=== PATIENT | female | born 1985 | race Caucasian/White ===

== ENCOUNTER → 2020-07-02 | Outpatient (CLI) | payer OTHER | LOC: M WHC 10:38 | PROVIDERS: ATTEND Obstetrics & Gynecology | DX: Z36.89 Encounter for other specified antenatal screening (principal); Z3A.13 13 weeks gestation of pregnancy ==

== ENCOUNTER → 2020-08-05 | Outpatient (CLI) | payer OTHER ==
--- NOTE | 2020-08-05 11:20 | REP ---
INDICATION: ANATOMY COMPARISON: None. TECHNIQUE: Transabdominal obstetrical ultrasound with color Doppler evaluation. FINDINGS: Examination demonstrates a single live intrauterine in breech presentation. motion is identified by technologist. Placenta is noted fundal and grade 1 without evidence for placenta previa or abruption. Amniotic fluid volume is normal. Cervix measures 3.0 cm in length and appears closed.. Selected gestational age: 18 weeks 1 day with TIMUR 01/05/2021. Gestational age by current measurements 19 weeks 0 days with TIMUR 12/30/2020. FHR equals 161 beats per minute. Estimated weight 267 grams (91stpercentile). Anatomical assessment demonstrates normal structures including cranium, choroid plexus, cavum, cerebellum/posterior fossa, facial features, lungs, four-chamber heart/ventricular outflow tracts, diaphragm, stomach, cord insertion/three-vessel cord, kidneys/bladder, and extremities. Limited images of the spine due to positioning. IMPRESSION: Single live intrauterine in breech presentation demonstrating appropriate estimated weight. Limited evaluation of the spine. Remainder of the anatomical assessment is complete and normal. <Electronically signed by All Hobbs > 08/05/20 [id number]
== END ==
LOC: M WHC 09:47
PROVIDERS: ATTEND Obstetrics & Gynecology
DX: Z36.89 Encounter for other specified antenatal screening (principal); Z3A.13 13 weeks gestation of pregnancy

== ENCOUNTER → 2020-09-15 | Outpatient (CLI) | payer OTHER ==
--- NOTE | 2020-09-15 13:36 | REP ---
INDICATION: F/U ANATOMY SPINE, TIMUR 01/05/21. COMPARISON: Comparison study August 05, 2020.. TECHNIQUE: Transabdominal obstetric sonography. FINDINGS: Scanning through the gravid uterus demonstrates a viable single intrauterine gestation in transverse lie. motion is observed and heart rate is recorded at 161 beats per minute. A fundal placenta is seen, grade 1, without evidence of placenta previa. Closed cervical length is measured at 4.3 cm transabdominally. No extrauterine abnormality is observed. Amniotic fluid is subjectively normal. No anomaly is seen. The following anatomic structures are identified and felt to be sonographically unremarkable: cranium, choroid plexus, cavum, cerebellum and posterior fossa, face and profile, lungs, four-chamber heart with left and right ventricular outflow tract views, diaphragm, left-sided stomach, abdominal wall cord insertion, three-vessel umbilical cord, kidneys and bladder, and upper and lower extremities. spine is still less than optimally seen due to position. Biometry chart: BPD 6.3 cm, 25 weeks 4 days Head circumference 22.9 cm, 25 weeks 0 days Abdominal circumference 19.7 cm, 24 weeks 2 days Femur length 4.1 cm, 23 weeks 1 day Humeral length 4.0 cm, 24 weeks 2 days HC AC ratio normal 1.16 Cephalic index normal 0.77 Estimated weight 653 g, 1 lb 7 oz, 43rd percentile for 24 weeks 0 days IMPRESSION: Viable single intrauterine gestation at 24 weeks 3 days by today's composite sonographic criteria. TIMUR by today's sonography January 02, 2021.. No complication identified. Expected gestational age estimate based on known TIMUR 01/05/2021 is 24 weeks 0 days. spine is still less than optimally visualized. Transverse lie. <Electronically signed by Tl Garcia > 09/15/20 [id number]
== END ==
LOC: M WHC 10:56
PROVIDERS: ATTEND Advanced Practice Midwife
DX: O09.522 Supervision of elderly multigravida, second trimester (principal)

== ENCOUNTER → 2020-09-24 | Outpatient (CLI) | payer OTHER | LOC: M WHC 12:17 | PROVIDERS: ATTEND Obstetrics & Gynecology | DX: Z36.89 Encounter for other specified antenatal screening (principal); Z3A.25 25 weeks gestation of pregnancy ==

== ENCOUNTER → 2020-09-24 | Outpatient (CLI) | payer OTHER ==
[2020-09-24 15:25] LABS: HEMATOCRIT 35.3 % (36.0-47.0); HEMOGLOBIN 11.7 g/dl (12.0-15.5); MEAN CORPUSCULAR HEMOGLOBIN 32.8 pg (27.0-33.0); MEAN CORPUSCULAR HGB CONC 33.1 g/dl (32.0-36.5); MEAN CORPUSCULAR VOLUME 98.9 fl (80.0-96.0); PLATELET COUNT, AUTOMATED 250 10^3/uL (150-450); RED BLOOD COUNT 3.57 10^6/uL (4.00-5.40); WHITE BLOOD COUNT 8.4 10^3/uL (4.0-10.0)
== END ==
LOC: M PLALAB 12:26
PROVIDERS: ATTEND Advanced Practice Midwife
DX: O09.522 Supervision of elderly multigravida, second trimester (principal)

== ENCOUNTER → 2020-09-30 | Outpatient (CLI) | payer OTHER ==
--- NOTE | 2020-09-30 08:23 | REP ---
INDICATION: F/U ANATOMY. COMPARISON: 08/05/2020 and 09/15/2020. TECHNIQUE: Studies performed for follow up evaluation of the spine. The spine could not be optimally demonstrated on the prior examinations. The remainder of the anatomy previously was unremarkable. FINDINGS: The study today the spine is adequately demonstrated and is unremarkable. The remainder of the anatomy was adequately demonstrated on the prior studies and was unremarkable. There is a single intrauterine gestation in a breech presentation. heart rate is 163 beats per minute. The placenta is fundal with grade 1 maturity. There is no placenta previa. The umbilical cord inserts centrally onto the placenta. There is a three-vessel cord. Subjectively the amniotic fluid volume is normal. The composite ultrasound gestational age by today's study is 27 weeks 0 days with an TIMUR of 12/30/2020. Gestational age by the 1st ultrasound is 26 weeks 1 day with an TIMUR of 01/05/2021. Gestational age by LMP is 26 weeks 1 day with an TIMUR of 01/05/2021. Estimated weight is 984 g/2 lb, 2 oz. This is the 68th percentile for 26 weeks 1 day. Review of the growth graphs indicates adequate interval growth. IMPRESSION: The spine is adequately demonstrated and is unremarkable. There has been adequate interval growth. <Electronically signed by Irvin Be > 09/30/20 [id number]
== END ==
LOC: M WHC 06:53
PROVIDERS: ATTEND Advanced Practice Midwife
DX: Z36.89 Encounter for other specified antenatal screening (principal); Z3A.25 25 weeks gestation of pregnancy

== ENCOUNTER → 2020-10-06 | Outpatient (CLI) | payer OTHER | LOC: M LAB 09:16 | PROVIDERS: ATTEND Advanced Practice Midwife | DX: O99.810 Abnormal glucose complicating pregnancy (principal) ==

== ENCOUNTER 2020-12-02 20:53 | Inpatient (IN) | payer OTHER ==
[~2020-12-02] VITALS: Ht 152.4 cm; Wt 68.3 kg
[2020-12-02] VITALS (10 sets, daily range): BP systolic 117–135; BP diastolic 59–83
[2020-12-02] MEDS ORDERED: PREN1CHW PO (21:18)
[2020-12-02] MEDS ORDERED: PENICILLIN G POTASSIUM IV 5 MU in D5W MINI-BAG PLUS 100 ML IV STA (21:58)
[2020-12-02] MEDS ORDERED: LACTATED RINGER'S 1000 ML IV STA (21:58)
[2020-12-02] MEDS ORDERED: OXYTOCIN DRIP 30 UNITS in IV 1 EA IV PRN (22:00)
[2020-12-02] MEDS ORDERED: TRANEXAMIC ACID INJection 1,000 MG in NS 100 ML IV PRN (22:00)
[2020-12-02] MEDS ORDERED: LIDOCAINE 1% MDV 20ML VIAL INFIL PRN (22:00)
[2020-12-02] MEDS ORDERED: BETAMETHASONE SOLUSPAN 6MG/ML 5ML VIAL (J0702 PER 3MG) IM SCH (22:00)
[2020-12-02] MEDS ORDERED: CARBOPROST TROMETHAMINE 250 MCG/ML AMP IM PRN (22:00)
[2020-12-02] MEDS ORDERED: METHYLERGONOVINE MALEATE 0.2 MG/ML VIAL (J2210) IM PRN (22:00)
--- NOTE | 2020-12-02 22:10 | HPEPDOC ---
Obstetrical History & Physical General Date of Admission Dec 02, 2020 at 21:50 History of Present Illness Patient is a 35-year-old G1, P0 at 35 weeks and 1 day estimated gestational age who presents to labor and delivery for rule out rupture. The patient was laying on her couch when she felt a pop and a large gush of fluid, she has continued leaking of clear fluid since then. She is also started having contractions which are 5 to 7 minutes apart but increasing in intensity. She had some vaginal bleeding which has since resolved. She reports positive movement. Chief Complaint: Rupture of membranes Age: 35 : 1 Term: 0 Livin Care Care: Good Care Dating Final EDC: Jan 05, 2021 Antepartum Course Diagnos(e)s 1. GDM A1-well controlled with diet 2. 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 history Past Medical History Medical History GDM A1 Surgical History: Denies/None Family History Significant Family History: No pertinent family hx Social History Marital Status: Family situation: Spouse/partner home Psychosocial History: No pertinent psych hx * Smoker: non-smoker Alcohol: Denies Drugs: denies Abuse Violence Screening Have you been hit/kicked/slapp: No Have you been sexually assault: No Imunizations Tdap status: current Allergies Coded Allergies: Sulfa (Sulfonamide Antibiotics) (Verified Allergy, Intermediate, 12/02/20) balsam davis (Verified Allergy, Unknown, 12/02/20) Medications Scheduled Comb No.42/Folic Acid (Prena1 Chew Tablet) 1.4 Mg Tab.ch.bph, 1 TAB PO DAILY Physical Examination Physical Examination GENERAL: Alert and oriented times three. BREAST: . ABDOMEN: Gravid and non-tender to touch. FETUS: Vertex by bedside ultrasound HEART RATE: Regular rate and rhythm. LUNGS: Clear to auscultation (CTA). EXTREMITIES: No edema. No clonus. Vital Signs/I&O Vital Signs Date Time Temp Pulse Resp B/P (MAP) Pulse Ox O2 Delivery O2 Flow Rate FiO2 12/02/20 21:19 98.6 93 14 117/73 (88) Laboratory Data 24H LABS Laboratory Tests 2 12/02/20 21:56: Serology Scanned Report Hepatitis B Testing Pertinent Laboratoy Data Blood Type: O+ RBC Antibody Screen: Negative HIV: Negative Hepatitis B: Negative Hepatitis C: Negative Rapid Plasma Reagin: Nonreactive Rubella: Immune Chlamydia/Gonorrhea: Negative Group B Streptococcus: Unknown Glucose Tolerance Test: 133 Steroid Therapy Steroid Therapy: Yes Date #1: Dec 02, 2020 Reason late Vaginal Examination Dilation: 5 cm Effacement: 100% Station: 0 Presentation: Cephalic presentation Assessment Heart Rate (FHR): 150 Variability: Moderate Accelerations: Positive Decelerations: None Tocometer Contractions: Yes Frequency: every 3-7 min. Assessment/Plan Assessment Patient is a 35-year-old (G) 1 para (P) 0 at 35+ 1 weeks who presents to Labor and Delivery (L&D) with premature rupture of membranes. Plan Admit and orient. Uniform Cap Operator and consent. Diet: Clear liquid Group B Streptococcus (GBS) unknown and , will start penicillin GBS swab sent to lab Will give course of betamethasone, first dose now Labs and intravenous (IV) per unit protocol. Counseled on Pitocin and induction of labor (IOL). Lactated Ringers (LR): Bolus 1000 mL, then at 125 mL/hr. Anticipate normal spontaneous vaginal delivery. C-S as appropriate. CANDI BAEZA MD Dec 02, 2020 22:10
[2020-12-02] MEDS ORDERED: OXYTOCIN 30 UNITS IN 0.9% NaCl 500ML IV BAG (J2590) As Ordered ONE (22:50)
[2020-12-02 22:56] LABS: HEMATOCRIT 31.2 % (36.0-47.0); HEMOGLOBIN 10.7 g/dl (12.0-15.5); MEAN CORPUSCULAR HEMOGLOBIN 31.9 pg (27.0-33.0); MEAN CORPUSCULAR HGB CONC 34.3 g/dl (32.0-36.5); MEAN CORPUSCULAR VOLUME 93.1 fl (80.0-96.0); PLATELET COUNT, AUTOMATED 190 10^3/uL (150-450); RED BLOOD COUNT 3.35 10^6/uL (4.00-5.40); WHITE BLOOD COUNT 7.6 10^3/uL (4.0-10.0)
[2020-12-02] MEDS ORDERED: FENTANYL 2MCG/ML ROPIVACAINE 0.2% IN 0.9% NACL 100ML IVBAG As Ordered ONE (23:04)
[2020-12-02] MEDS ORDERED: diphenhydrAMINE 50MG/ML VIAL (J1200) IV PRN (23:41)
[2020-12-02] MEDS ORDERED: REFRIGERATOR IV KEYS XX PRN (23:41)
[2020-12-02] MEDS ORDERED: EPIDURAL/PCA KEYS XX PRN (23:41)
[2020-12-02] MEDS ORDERED: EPIDURAL COMMENT XX SCH (23:41)
[2020-12-02] MEDS ORDERED: ONDANSETRON 4MG/2ML VIAL IV PRN (23:41)
[2020-12-02] MEDS ORDERED: LACTATED RINGER'S 1000 ML IV PRN (23:41)
[2020-12-02] MEDS ORDERED: ePHEDrine SULFATE 25 MG/5 ML(5MG/ML) SYRINGE IV PRN (23:41)
[2020-12-02] MEDS ORDERED: NALOXONE INJ 0.4MG/1ML VIAL (J2310 PER 1MG) IV PRN (23:41)
[2020-12-02] MEDS ORDERED: FENTANYL/ROPIVACAINE/NACL BAG 100 ML EPIDURAL SCH (23:41)
[2020-12-02] MEDS: LR 1,000 ML IV SCH (23:48)
--- NOTE | 2020-12-02 23:57 | IPNPDOC ---
Obstetrical Progress Note Date of Service Dec 02, 2020 Subjective pt more comfortable with epidural, feeling intermittent rectal pressure Objective Vital Signs Date Time Temp Pulse Resp B/P (MAP) Pulse Ox O2 Delivery O2 Flow Rate FiO2 12/02/20 21:19 98.6 93 14 117/73 (88) Assessment Heart Rate (FHR): 130 Variability: Moderate Accelerations: Positive Decelerations: None Heart Rate Tracing: Category I Tocometer Contractions: Yes Frequency: regular Sterile Vaginal Examination Dilation: 8 cm Effacement (%): 100% Station: +1 Assessment and Plan Status: Reassuring Group B Streptococcus: Unknown Anticipate: Vaginal Delivery CANDI BAEZA MD Dec 02, 2020 23:57
[2020-12-03] VITALS (10 sets, daily range): BP systolic 102–128; BP diastolic 50–69
[2020-12-03] MEDS ORDERED: PENICILLIN G POTASSIUM IV 2.5 MU in IV 1 EA IV SCH (03:00)
[2020-12-03] MEDS ORDERED: MEASLES,MUMPS,RUBELLA VACCINE INJ (MMR-II) (90707) SC SCH (03:15)
[2020-12-03] MEDS ORDERED: DOCUSATE SODIUM 100MG CAPSULE PO PRN (03:15)
[2020-12-03] MEDS ORDERED: METHYLERGONOVINE MALEATE 0.2 MG TAB PO PRN (03:15)
[2020-12-03] MEDS ORDERED: RHOGAM 300 MCG (1500 IU) INJ (J2790) IM SCH (03:15)
[2020-12-03] MEDS ORDERED: ONDANSETRON 4MG/2ML VIAL IV PRN (03:15)
[2020-12-03] MEDS ORDERED: ACETAMINOPHEN 500 MG TAB PO PRN (03:15)
[2020-12-03] MEDS ORDERED: OXYTOCIN DRIP 30 UNITS in IV 1 EA IV SCH (03:15)
[2020-12-03] MEDS ORDERED: IBUPROFEN 600MG TAB PO PRN (03:15)
[2020-12-03] MEDS ORDERED: DIBUCAINE 1% OINTMENT 30GM TOP PRN (03:15)
--- NOTE | 2020-12-03 03:22 | DNPDOC ---
[facility] Delivery Note Delivery Note DATE OF DELIVERY: 12/03/2020 PREDELIVERY DIAGNOSIS: 35-2/7 weeks' gestation and labor. POST DELIVERY DIAGNOSIS: Delivered. PROCEDURE: Spontaneous vaginal delivery. DISPLAY DESIGNER: Dr. Candi Baeza ANESTHESIA: Epidural. ESTIMATED BLOOD LOSS: 200 mL. FINDINGS: 6 pound 9 ounce male infant, Score 8/8 DELIVERY SUMMARY: Patient is a 35-year-old 1 now para 1001 who was admitted to labor and delivery for premature rupture of membranes followed by contractions. Patient was found to be 5 cm dilated and 100% effaced on admission. She was given a single dose of betamethasone for lung maturity and started on penicillin for GBS unknown and . She quickly became more uncomfortable and was found to be 8 cm dilated and requested an epidural. The epidural was placed. The patient progressed to complete with head at the +2 station. The patient pushed well over several contractions and the infant was delivered without complication. After 30 second delay the cord was clamped and cut. Placenta was expressed with fundal massage. The pat ient had a second-degree perineal laceration which was repaired with 3-0 Vicryl suture in a running/locking fashion. A small periurethral tear was repaired with 3-0 Vicryl on an SH needle for hemostasis. Uterine tone was excellent and adequate hemostasis was noted. A rectal exam performed after delivery was unremarkable and no sutures were palpated. Sponge and sharp count correct. CANDI BAEZA MD Dec 03, 2020 03:22
[2020-12-03] MEDS: PRENATAL VITAMINS CHEWABLE TABLET PO SCH (09:00)
[2020-12-03] MEDS: LR 1,000 ML IV SCH ×2 (11:01→14:00)
[2020-12-04 06:00] VITALS: BP 102/57
[2020-12-04] MEDS: PRENATAL VITAMINS CHEWABLE TABLET PO SCH (07:52)
[2020-12-04 10:07] LABS: HEMATOCRIT 30.7 % (36.0-47.0); HEMOGLOBIN 9.8 g/dl (12.0-15.5); MEAN CORPUSCULAR HEMOGLOBIN 31.1 pg (27.0-33.0); MEAN CORPUSCULAR HGB CONC 31.9 g/dl (32.0-36.5); MEAN CORPUSCULAR VOLUME 97.5 fl (80.0-96.0); PLATELET COUNT, AUTOMATED 216 10^3/uL (150-450); RED BLOOD COUNT 3.15 10^6/uL (4.00-5.40); WHITE BLOOD COUNT 11.2 10^3/uL (4.0-10.0)
== END 2020-12-04 12:46 | disposition home or self-care (01) | DRG 560 ==
LOC: M LDO 20:53 → M LDI 21:50 → M OBS 12-03 05:27
PROVIDERS: ADMIT Obstetrics & Gynecology; ATTEND Obstetrics & Gynecology
PROC: 10E0XZZ Delivery of Products of Conception, External Approach (ICD-10-PCS; principal; 2020-12-03)
PROC: 0KQM0ZZ Repair Perineum Muscle, Open Approach (ICD-10-PCS; 2020-12-03)
DX: O42.013 Preterm premature rupture of membranes, onset of labor within 24 hours of rupture, third trimester (principal); O24.420 Gestational diabetes mellitus in childbirth, diet controlled; Z3A.35 35 weeks gestation of pregnancy; Z37.0 Single live birth; O70.1 Second degree perineal laceration during delivery

== ENCOUNTER → 2021-03-23 | Outpatient (CLI) | payer OTHER ==
[~2021-03-23] MED LIST: PREN1CHW PO
[2021-03-23 13:30] LABS: ALBUMIN 3.9 GM/DL (3.2-5.2); ALT/SGPT 18 U/L (12-78); BILIRUBIN,TOTAL 0.3 MG/DL (0.2-1.0); BLOOD UREA NITROGEN 11 MG/DL (7-18); CALCIUM LEVEL 8.9 MG/DL (8.5-10.1); CARBON DIOXIDE LEVEL 24 MEQ/L (21-32); CHLORIDE LEVEL 108 MEQ/L (98-107); CREATININE FOR GFR 0.88 MG/DL (0.55-1.30); GLOMERULAR FILTRATION RATE > 60.0 (>60); GLUCOSE, FASTING 89 MG/DL (70-100); POTASSIUM SERUM 4.6 MEQ/L (3.5-5.1); SODIUM LEVEL 138 MEQ/L (136-145); TOTAL PROTEIN 7.2 GM/DL (6.4-8.2)
[2021-03-23 13:48] LABS: HEMOGLOBIN A1c 5.3 %
== END ==
LOC: M PLALAB 10:30
PROVIDERS: ATTEND Physician Assistant Medical
DX: Z00.00 Encounter for general adult medical examination without abnormal findings (principal); Z86.32 Personal history of gestational diabetes

== ENCOUNTER → 2022-10-26 | Outpatient (REF) | payer OTHER ==
[2022-10-26 17:30] LABS: BASO # 0.1 10^3/uL (0.0-0.2); BASO % 0.7 % (0.0-1.0); EOS # 0.2 10^3/uL (0.0-0.5); EOS % 2.2 % (0.0-3.0); HEMATOCRIT 40.1 % (36.0-47.0); HEMOGLOBIN 12.9 g/dl (12.0-15.5); LYMPH # 2.8 10^3/uL (1.5-5.0); LYMPH % 33.2 % (24.0-44.0); MEAN CORPUSCULAR HEMOGLOBIN 31.3 pg (27.0-33.0); MEAN CORPUSCULAR HGB CONC 32.2 g/dl (32.0-36.5); MEAN CORPUSCULAR VOLUME 97.3 fl (80.0-96.0); MONO # 0.7 10^3/uL (0.0-0.8); MONO % 8.3 % (2.0-8.0); NEUTROPHILS # 4.7 10^3/uL (1.5-8.5); NEUTROPHILS % 55.1 % (36.0-66.0); PLATELET COUNT, AUTOMATED 270 10^3/uL (150-450); RED BLOOD COUNT 4.12 10^6/uL (4.00-5.40); WHITE BLOOD COUNT 8.6 10^3/uL (4.0-10.0)
[2022-10-26 17:52] LABS: ALBUMIN 4.2 G/DL (3.2-5.2); ALKALINE PHOSPHATASE 48 U/L (46-116); ALT/SGPT 13 U/L (7.0-40); AST/SGOT 10 U/L (<34); BILIRUBIN,TOTAL 0.5 MG/DL (0.3-1.2); BLOOD UREA NITROGEN 9 MG/DL (9-23); CARBON DIOXIDE LEVEL 27 MMOL/L (20-31); CHLORIDE LEVEL 103 MMOL/L (98-107); CREATININE FOR GFR 0.75 MG/DL (0.55-1.30); GLOMERULAR FILTRATION RATE > 60.0 (>60); GLUCOSE, FASTING 81 MG/DL (60-100); POTASSIUM SERUM 3.8 MMOL/L (3.5-5.1); SODIUM LEVEL 138 MMOL/L (136-145); TOTAL PROTEIN 7.1 G/DL (5.7-8.2)
[2022-10-26 17:53] LABS: THYROID STIMULATING HORMONE 9.947 uIU/ML (0.55-4.78); TOTAL 25(OH) VITAMIN D 25.4 NG/ML (20.0-100.0)
[2022-10-26 17:59] LABS: C REACTIVE PROTEIN QUANTITATIV < 0.40 MG/DL (<1.0)
[2022-10-26 18:04] LABS: ERYTHROCYTE SEDIMENTATION RATE 14 mm/hr (0-20)
== END ==
LOC: M SFHCADAM 14:30
PROVIDERS: ATTEND Physician Assistant Medical
DX: G89.29 Other chronic pain (principal); Z86.32 Personal history of gestational diabetes; M54.50 Low back pain, unspecified; F32.81 Premenstrual dysphoric disorder; R19.5 Other fecal abnormalities; R14.0 Abdominal distension (gaseous)

== ENCOUNTER → 2022-10-27 | Outpatient (REF) | payer OTHER | LOC: M SFHCADAM 16:37 | PROVIDERS: ATTEND Physician Assistant Medical | DX: R19.5 Other fecal abnormalities (principal); R14.0 Abdominal distension (gaseous); Z86.32 Personal history of gestational diabetes; G89.29 Other chronic pain; M54.50 Low back pain, unspecified; F32.81 Premenstrual dysphoric disorder ==

== ENCOUNTER → 2022-12-14 | Outpatient (REF) | payer OTHER ==
[2022-12-14 16:25] LABS: THYROID STIMULATING HORMONE 2.86 uIU/ML (0.55-4.78)
== END ==
LOC: M SFHCADAM 13:43
PROVIDERS: ATTEND Physician Assistant Medical
DX: E03.9 Hypothyroidism, unspecified (principal)

== ENCOUNTER → 2023-02-06 | Outpatient (REF) | payer OTHER | LOC: M LAB REF 09:45 | PROVIDERS: ATTEND Physician Assistant Medical | DX: R19.7 Diarrhea, unspecified (principal) ==

== ENCOUNTER 2023-03-24 06:43 | Day surgery (SDC) | payer OTHER ==
[~2023-03-24] VITALS: Ht 152.4 cm; Wt 59.9 kg
[~2023-03-24 06:43] MED LIST changes: +NS 1,000 ML IV ONE; +SYNT50TA PO; +VITMTA PO
[2023-03-24] MEDS ORDERED: fentaNYL 100 MCG/2 ML INJECTION As Ordered ONE (07:29)
[2023-03-24] MEDS ORDERED: propofoL 200 MG/20 ML VIAL As Ordered ONE ×4 (07:29→08:02)
[2023-03-24] MEDS ORDERED: LIDOCAINE 2% 100MG/5ML SDV (FOR ANES.) As Ordered ONE (07:29)
[2023-03-24 08:27] VITALS: BP 109/61; O2SAT 100
== END 2023-03-24 08:40 | disposition home or self-care (01) ==
LOC: M OPP 06:43
PROVIDERS: ATTEND Internal Medicine Gastroenterology
DX: D12.3 Benign neoplasm of transverse colon (principal); D12.5 Benign neoplasm of sigmoid colon; K57.30 Diverticulosis of large intestine without perforation or abscess without bleeding; R19.7 Diarrhea, unspecified; R12 Heartburn; R11.0 Nausea; Z79.1 Long term (current) use of non-steroidal anti-inflammatories (NSAID); Z79.890 Hormone replacement therapy; Z79.899 Other long term (current) drug therapy; Z88.2 Allergy status to sulfonamides
CPT/HCPCS: 43239; 45380; 45385; 88305; J3010

== ENCOUNTER → 2023-04-28 | Outpatient (REF) | payer OTHER ==
[~2023-04-28] MED LIST changes: -NS 1,000 ML IV ONE
[2023-04-28 13:31] LABS: HEMATOCRIT 39.5 % (36.0-47.0); MEAN CORPUSCULAR HEMOGLOBIN 31.9 pg (27.0-33.0); MEAN CORPUSCULAR HGB CONC 32.9 g/dl (32.0-36.5); MEAN CORPUSCULAR VOLUME 97.1 fl (80.0-96.0); PLATELET COUNT, AUTOMATED 225 10^3/uL (150-450); RED BLOOD COUNT 4.07 10^6/uL (4.00-5.40); WHITE BLOOD COUNT 5.6 10^3/uL (4.0-10.0)
[2023-04-28 13:47] LABS: LIPASE 27 U/L (12-53)
[2023-04-28 13:48] LABS: AMYLASE 53 U/L (30-118)
[2023-04-28 13:49] LABS: ALKALINE PHOSPHATASE 43 U/L (46-116); ALT/SGPT 15 U/L (7.0-40); AST/SGOT 12 U/L (<34); BILIRUBIN,TOTAL 0.6 MG/DL (0.3-1.2); BLOOD UREA NITROGEN 12 MG/DL (9-23); CALCIUM LEVEL 8.4 MG/DL (8.5-10.1); CARBON DIOXIDE LEVEL 28 MMOL/L (20-31); CHLORIDE LEVEL 106 MMOL/L (98-107); CREATININE FOR GFR 0.76 MG/DL (0.55-1.30); GLOMERULAR FILTRATION RATE > 60.0 (>60); GLUCOSE, FASTING 99 MG/DL (60-100); POTASSIUM SERUM 4.7 MMOL/L (3.5-5.1); SODIUM LEVEL 138 MMOL/L (136-145); TOTAL PROTEIN 6.8 G/DL (5.7-8.2)
== END ==
LOC: M LABDRWAD 12:23
PROVIDERS: ATTEND Physician Assistant Medical
DX: K86.81 Exocrine pancreatic insufficiency (principal); R19.7 Diarrhea, unspecified

== ENCOUNTER → 2023-04-28 | Outpatient (REF) | payer OTHER | LOC: M SFHCADAM 10:52 | PROVIDERS: ATTEND Physician Assistant Medical | DX: F34.1 Dysthymic disorder (principal); E03.9 Hypothyroidism, unspecified ==

== ENCOUNTER → 2023-08-12 | Outpatient (CLI) | payer OTHER ==
[~2023-08-12] MED LIST changes: +GASTROGRAFIN SOLUTION 30ML ONE; +ISOVUE-370 76% 100ML VIAL ONE
== END ==
LOC: M PLAIMG 09:40
PROVIDERS: ATTEND Physician Assistant Medical
DX: R19.7 Diarrhea, unspecified (principal); R11.0 Nausea; K57.30 Diverticulosis of large intestine without perforation or abscess without bleeding; K76.0 Fatty (change of) liver, not elsewhere classified

== ENCOUNTER → 2024-02-27 | Outpatient (CLI) | payer OTHER ==
[~2024-02-27] MED LIST changes: -GASTROGRAFIN SOLUTION 30ML ONE; -ISOVUE-370 76% 100ML VIAL ONE
[2024-02-27 11:09] LABS: FREE T4 1.21 NG/DL (0.89-1.76); THYROID STIMULATING HORMONE 2.612 uIU/ML (0.55-4.78)
== END ==
LOC: M PLALAB 08:15
PROVIDERS: ATTEND Physician Assistant Medical
DX: E03.9 Hypothyroidism, unspecified (principal)

== ENCOUNTER → 2024-03-28 | Outpatient (REF) | payer OTHER ==
[2024-03-28 15:23] LABS: APPEARANCE, URINE CLEAR (CLEAR); BACTERIA, URINE AUTO NEGATIVE (NEGATIVE); BILIRUBIN, URINE AUTO NEGATIVE (NEGATIVE); BLOOD, URINE BLOOD 2+ (NEGATIVE); COLOR, URINE STRAW (YELLOW); GLUCOSE, URINE (UA) AUTO NEGATIVE (NEGATIVE); KETONE, URINE AUTO NEGATIVE (NEGATIVE); LEUKOCYTE ESTERASE, URINE AUTO TRACE (NEGATIVE); NITRITE, URINE AUTO NEGATIVE (NEGATIVE); PROTEIN, URINE AUTO NEGATIVE (NEGATIVE); RBC, URINE AUTO 1 /HPF (0-3); SPECIFIC GRAVITY URINE AUTO 1.004 (1.002-1.035); SQUAMOUS EPITHELIAL CELL UR AU 0 /HPF (0-6); UROBILINOGEN, URINE AUTO 0.2 mg/dL (0.0-2.0); WBC, URINE AUTO 9 /HPF (0-3)
== END ==
LOC: M SFHCADAM 14:46
PROVIDERS: ATTEND Physician Assistant Medical
DX: R30.0 Dysuria (principal)

== ENCOUNTER → 2024-08-28 | Outpatient (CLI) | payer OTHER ==
[~2024-08-28] MED LIST changes: +MULTCHW12 PO
[2024-08-28 11:30] LABS: FREE T4 1.19 NG/DL (0.89-1.76)
== END ==
LOC: M PLALAB 07:52
PROVIDERS: ATTEND Physician Assistant Medical
DX: E03.9 Hypothyroidism, unspecified (principal)

== ENCOUNTER → 2024-09-21 | Outpatient (CLI) | payer OTHER ==
[2024-09-21 11:01] LABS: FREE T4 1.18 NG/DL (0.89-1.76)
== END ==
LOC: M PLALAB 08:35
PROVIDERS: ATTEND Physician Assistant Medical
DX: E03.9 Hypothyroidism, unspecified (principal)

== ENCOUNTER → 2024-11-16 | Outpatient (CLI) | payer OTHER ==
[2024-11-16 13:02] LABS: FREE T4 1.37 NG/DL (0.89-1.76)
== END ==
LOC: M PLALAB 07:51
PROVIDERS: ATTEND Physician Assistant Medical
DX: E03.9 Hypothyroidism, unspecified (principal)